=== PATIENT | female | born 1965 | race Caucasian/White ===

== ENCOUNTER 2016-12-28 09:12 | Day surgery (SDC) | payer OTHER ==
[~2016-12-28] VITALS: Ht 165.1 cm; Wt 68.0 kg
--- NOTE | 2016-12-28 08:49 | PCM.HPANE ---
Patient Data Surgeon Admitting Provider: Attending Provider:Nenita Mccloud MD Primary Care Physician:Milvia Other Provider:Dee Vinesingham Anesthesia Reason for Visit Screening Ht/WT & BMI Body Mass Index Allergies Coded Allergies: amoxicillin (Verified Allergy, Severe, body rash, 12/28/16) Past Anesthesia History Anesthesia History: Denies:: Abnormal Airway, Anesthesia Reactions, Difficult Intubation Diabetes History Hx Diabetes?: No MRSA MRSA: No Medications Hypertension Medication: No Home Meds Incl Beta Reena: No Reported Medications Valacyclovir HCl (Valtrex)500 Mg [id number] Mg PO DAILY 30 Days 12/27/16 Multivitamin (Once Daily)1 Each Tablet1 Each PO DAILY 12/27/16 Ketoconazole 15 Gm Cream..g.15 Gm TP BID 12/27/16 Fluoxetine 20 Mg [id number] Mg PO DAILY Ref 0 12/27/16 History History of ENT Problems?: No Hx of Heart Problems?: No Hx of Respiratory Problem?: No Hx Neurologic Problems?: No Hx of GI Problems?: Yes (blood in stool) Female Hx: Denies:: Currently Skin History: Denies:: History Skin Disorders? Hx Musculoskeletal Problems?: No Hx of Psycho/Social Problems?: No Hx Surgeries?: No Hx Any Other Health Problems?: No Hx Diabetes: No Stop/Bang Treated for Sleep Apnea?: No Do You Have a CPAP Machine?: No Risk Assessment Category Category 1A: Patient has history of documented sleep apnea, and HAS NOT received any narcotic, sedative or anesthesia administration during this stay. Category 1B: Patient has history of documented sleep apnea, and HAS received any narcotic , sedative or anesthesia administration during this stay Category 2: Patient has SUSPECTED Obstructive Sleep Apnea, and HAS received any narcotic , sedative or anesthesia administration during this stay. Category 3: Patient has SUSPECTED Obstructive Sleep Apnea and HAS NOT received narcotic, sedative or anesthesia administration during this stay. Category 4: Outpatient in Procedural Areas with known sleep apnea or who screen positive for High Risk via the STOP/BANG questionnaire. Exam Exam General Appearance: Alert, Oriented X3, Cooperative, No Acute Distress HEENT/AIRWAY: MP 2 Lungs: Clear to Auscultation, Normal Air Movement Heart: Exam Unremarkable, Regular Rate/Rhythm, No Murmurs/Rubs/Gallops Plan Impression Patient chart reviewed, patient interviewed and anesthestic plan with risks, benefits, and alternatives discussed, and informed consent obtained. ASA Physical Status: ASA2 Mod Systemic Disease Anesthetic Plan: MAC Bene/Risks/Altern/Consents: Yes HP Complete Prior to Induction: Yes Christopher William MD Dec 28, 2016 08:49
[~2016-12-28 09:12] MED LIST: FLUO20CA25 PO; KTC2C15 TP; Lactated Ringer's 1,000 ML IV ONE; MULT-666 PO; VALA500T2 PO
[2016-12-28] MEDS ORDERED: fentaNYL-PF 50 mCg/mL 2 mL Inj ONE (09:13)
[2016-12-28] MEDS ORDERED: Ketamine 10 mg/mL 20 mL Inj ONE (09:13)
[2016-12-28] MEDS ORDERED: Propofol 10,000 mCg/mL 20 mL Inj ONE (09:13)
[2016-12-28 09:30] VITALS: BP 113/80; PULSE 58; RESP 16; O2SAT 100
[2016-12-28] MEDS ORDERED: Lactated Ringer's 1,000 ML IV SCH (10:21)
[2016-12-28] MEDS ORDERED: Ondansetron 2 mg/mL 2 mL Inj IVPUSH PRN (10:25)
[2016-12-28] MEDS ORDERED: MetoCLOpramide 5 mg/mL 2 mL Inj IVPUSH PRN (10:25)
[2016-12-28 10:49] VITALS: BP 112/69; PULSE 62; RESP 14; O2SAT 98
[2016-12-28 10:50] VITALS: BP 112/69; PULSE 66; RESP 14; O2SAT 99
[2016-12-28 11:04] VITALS: BP 118/72; PULSE 69; RESP 14; O2SAT 100
--- NOTE | 2016-12-28 11:10 | ENDO ---
[address] [address] ENDOSCOPY PROCEDURE PATIENT: AMINA CUMMINGS : 1965 MR#: [id number] ADMIT: 12/28/2016 JOB ID: [id number] DATE: 12/28/2016 PROCEDURE: Colonoscopy. INDICATION: Screening. The patient's ASA classification, Mallampati score and medications as per Dr. Crocker's anesthesia report. INSTRUMENT USED: PCF H 180 AL. PREPARATION QUALITY: Was good. PROCEDURE DETAILS: After informed consent was obtained, the patient was brought into the GI suite, where she was placed on oxygen via nasal cannula and monitored with continuous pulse oximeter, telemetry and blood pressure monitoring. A time-out was performed. Then, she was placed the left lateral decubitus position and medications were administered for sedation. Digital rectal examination was performed, which was unremarkable. The colonoscope was then inserted into the rectum and advanced under direct visualization to the cecum, which was identified by the presence of the ileocecal valve and appendiceal orifice. Once the cecum was reached, colonoscope was withdrawn back into the rectum as mucosa lumen were examined. In the rectum, retroflexion was performed. Following retroflexion, remaining air in the rectum was suctioned and the procedure was completed. FINDINGS: Normal examination from rectum to cecum. IMPRESSION: Normal colonoscopy. RECOMMENDATIONS: Repeat colonoscopy in 10 years, sooner if symptoms should dictate. COMPLICATIONS: None. ESTIMATED BLOOD LOSS: 0.
--- NOTE | 2016-12-28 11:26 | PCM.ANEP2 ---
Post Anesthesia Evaluation ASA/CMS Post Anesthesia VS in Patient's Normal Range?: Yes Resp Stable; Airway Patent?: Yes CV Function & Hydration Stable: Yes Mental Status Recovered?: Yes Pain control Satisfactory?: Yes N/V Control Satisfactory?: Yes Christopher William MD Dec 28, 2016 11:26
--- NOTE | 2016-12-28 11:26 | PCM.ANEP1 ---
Post Anesthesia Phase 1 PACU Phase 1 Assessment Vital Signs Vital Signs Date Time Temp Pulse Resp B/P Pulse Ox O2 Delivery O2 Flow Rate FiO2 12/28/16 11:04 69 14 118/72 100 Room Air 12/28/16 10:50 66 14 112/69 99 Room Air 12/28/16 10:49 62 14 112/69 98 Room Air 12/28/16 09:30 58 16 113/80 100 Room Air Anesthetic Administered: MAC Level of Alertness: Sleepy, easy to arouse GIBSON's with Equal Strength: Yes Pain: No Nausea or Vomiting: No Oxygen Delivery: Nasal Cannula Lungs: Clear to Auscultation, Normal Air Movement Dermatome Level: Full Sensation Christopher William MD Dec 28, 2016 11:25
== END 2016-12-28 23:59 | disposition home or self-care (01) ==
LOC: END 09:12
PROVIDERS: ATTEND Internal Medicine Gastroenterology
DX: Z12.11 Encounter for screening for malignant neoplasm of colon (principal); K92.1 Melena; F10.21 Alcohol dependence, in remission; F32.9 Major depressive disorder, single episode, unspecified
CPT/HCPCS: G0121; J2250; J3010; J7120